=== PATIENT | female | born 1965 | race Hispanic/Latino ===

== ENCOUNTER 2019-01-17 08:06 | Outpatient (CLI) | payer BC ==
--- NOTE | 2019-01-17 08:49 | RAD ---
LUMBAR SPINE TWO VIEWS: History: Low back pain. FINDINGS/IMPRESSION: No compression fracture or bony destruction is seen. There is minimal anterolisthesis of L4 over L5. POS: [facility]
--- NOTE | 2019-01-17 08:53 | RAD ---
SACRUM AND COCCYX STANDARD: History: M54.5 Low back pain. Comparison: None. FINDINGS: Visualized portion of the obturator rings are intact. The sacrum and coccyx are intact. SI joints are unremarkable. The sacral stripes are normal. IMPRESSION: Normal exam. POS: [facility]
== END 2019-01-17 08:07 | disposition home or self-care (01) ==
LOC: SCSRAD 08:06
PROVIDERS: ATTEND Family Medicine
DX: Z00.00 Encounter for general adult medical examination without abnormal findings (principal); M54.5 Low back pain; G89.29 Other chronic pain; M25.649 Stiffness of unspecified hand, not elsewhere classified; M43.16 Spondylolisthesis, lumbar region
CPT/HCPCS: 72100; 72220